=== PATIENT | male | born 1950 | race Caucasian/White ===

== ENCOUNTER 2019-03-23 17:58 | Inpatient (IN) ==
[2019-03-23] MEDS ORDERED: TESSALON PO PRN (18:23)
[2019-03-23] MEDS ORDERED: SODIUM CHLORIDE 0.9% INJ SCH (18:30)
[2019-03-23] MEDS ORDERED: NEXIUM IV SCH (18:30)
[2019-03-23] MEDS: ULTRAM PO PRN ×2 (19:00→22:33)
[2019-03-23] MEDS: LOVENOX SUBQ SCH (19:38)
[2019-03-23] MEDS: NS 1,000 ML IV SCH (19:39)
[2019-03-23] MEDS: ZOSYN 3.375 GM in NS 50 ML IV SCH ×2 (19:39→23:57)
[2019-03-23] MEDS: PROTONIX IV SCH (19:39)
[2019-03-23] MEDS: SODIUM CHLORIDE 0.9% INJ SCH (19:39)
[2019-03-23] MEDS: ZITHROMAX 500 MG/NS 500 MG/250 ML IVPB IV SCH (20:31)
[2019-03-23] MEDS ORDERED: FLOMAX PO SCH (21:45)
[2019-03-23] MEDS: LOPRESSOR PO SCH (22:26)
[2019-03-23] MEDS: MOBIC PO SCH (22:27)
[2019-03-24] MEDS: ZOSYN 3.375 GM in NS 50 ML IV SCH ×4 (00:30→18:41)
[2019-03-24] MEDS: ULTRAM PO PRN ×3 (06:00→22:24)
--- NOTE | 2019-03-24 07:03 | HISTORY AND PHYSICAL ---
CHIEF COMPLAINT: Low-grade fever, cough, congestion since the neck surgery. HISTORY OF PRESENT ILLNESS: He is a 68-year-old white gentleman, who recently had neck surgery in [facility] by Dr. Kyle Pelaez. He had ACDF fusion between C3-C4-C5. He had a previous fusion from C5-C7 by Dr. Ritter. Since then, he has a cough treated with 2 rounds of antibiotics with Levaquin and Bactrim (failed to improve) and came to our office. He has crackles in the left base. Chest x-ray with left lower lobe infiltrate. He failed to improve with outpatient medical management. Admitted to the hospital for aggressive IV antibiotics and bronchial toilet. PAST MEDICAL HISTORY: Abnormal EKG with right bundle branch block. Aortic aneurysm 40 mm, infrarenal aneurysm 3.2 cm, benign prostatic hypertrophy, noncritical CAD with 40% circumflex calcification, 25% RCA, diabetes type 2, diverticulosis, hyperlipidemia, hypertension, hypogonadism, sleep apnea, obesity, osteoporosis, history of small bowel obstruction due to adhesions, vitamin B 12 deficiency. PAST SURGICAL HISTORY: Partial colectomy, left knee arthroscopy, status post right complete mastectomy of great toenail, status post Achilles tendon repair for Mary disease, bilateral knee arthroplasty, C5-C6 fusion, C3-C4, C4-C5 fusion recently, left eye cataract surgery, exploratory laparotomy for small bowel obstruction by Dr. Hester in May 2017. Prostate biopsy was negative. Stable perirectal mass. MEDICATIONS: 1. Mobic 15 mg daily. 2. Metoprolol 25 p.o. b.i.d. 3. Aspirin 81 mg daily. 4. Tramadol 100 t.i.d. 5. BuSpar 15 p.o. t.i.d. 6. Gabapentin 300 t.i.d. 7. Flomax 0.4 mg. 8. Recently was given Medrol Dosepak, Levaquin and Bactrim. 9. Flomax 0.4 daily. 10. Crestor 10 mg daily. VACCINATION: 1. Flu vaccine in 2018. 2. Pneumococcal 13 was given 02/17/2018. SOCIAL HISTORY: Recently lost a , 3 children. Brown. Lives in [place]. No smoking. No alcohol. FAMILY HISTORY: Father of AAA rupture at 84. Mom of old age at 92. HEALTH MAINTENANCE: Last physical January 2018; colonoscopy 2009; ultrasound of the aorta 4.3 cm January 2018. REVIEW OF SYSTEMS: HEENT: Persistent cough, postnasal drainage, earache. No headache. No dizziness. Neck: No neck pain. Recently had neck surgery. Cardiopulmonary: No chest pain. Persistent cough, wheezing. GI: No nausea, vomiting, abdominal pain. : No history of hesitancy, frequency, dysuria. No swelling of legs. No joint pain. Neurologic exam: No focal symptoms or weakness. EXAMINATION: Vitals: Temperature is 97 degrees, pulse 94, blood pressure 142/98, 6 feet 1 inch, 280 pounds. HEENT: Atraumatic, normocephalic. Pupils equal, reactive to light. TMs are normal. Nose and throat congested. Chest: Crackles in the left base. Heart: Sounds are regular. Abdomen: Belly is soft, obese, nontender. Rectal: Deferred. Extremities: No peripheral edema, cyanosis. Neurologic: No obvious neurological deficits. INVESTIGATION: In my office, CBC is normal. SMA 7 is normal. Chest x-ray: Left lower lobe infiltrate. ASSESSMENT AND PLAN: 1. A 68-year-old white gentleman admitted to the hospital post neck surgery by Dr. Pelaez, persistent upper respiratory infection symptoms with left lower lobe infiltrate, not able to improve with outpatient treatment. Plan is intravenous Zosyn intravenous Zithromax, intravenous steroids, intravenous fluids 2. Health maintenance. Up-to-date on flu and pneumonia vaccine. 3. Deep vein thrombosis and gastrointestinal prophylaxis with Lovenox and Protonix. 4. Reconcile home medications. 5. Noncritical coronary artery disease. Continue on aspirin and Lopressor. 6. Hyperlipidemia on Crestor. 7. Benign prostatic hypertrophy on Flomax. 8. History of abdominal aortic aneurysm. 9. History of cardiac surveillance once a year. 10. Noncritical coronary artery disease with right bundle branch block. I put him on aspirin, beta blockers. 11. Hyperlipidemia on Crestor and Zetia, and will follow up. cc: Fransisco Lance MD
[2019-03-24] MEDS: ASPIRIN EC PO SCH (08:31)
[2019-03-24] MEDS: BUSPAR PO SCH ×3 (08:31→16:27)
[2019-03-24] MEDS: NEURONTIN PO SCH ×3 (08:31→16:26)
[2019-03-24] MEDS: SOLU-MEDROL IV SCH (08:31)
[2019-03-24] MEDS: LOPRESSOR PO SCH ×2 (08:31→22:11)
[2019-03-24] MEDS: CYMBALTA PO SCH (08:48)
[2019-03-24] MEDS: NS 1,000 ML IV SCH ×2 (11:28→22:10)
[2019-03-24] MEDS ORDERED: AMBIEN PO PRN (11:52)
[2019-03-24] MEDS ORDERED: ATIVAN IV ONE (18:19)
[2019-03-24] MEDS: LOVENOX SUBQ SCH (18:41)
[2019-03-24] MEDS: SODIUM CHLORIDE 0.9% INJ SCH (18:43)
[2019-03-24] MEDS: PROTONIX IV SCH (18:43)
--- NOTE | 2019-03-24 21:18 | PROGRESS NOTE ---
DATE: 03/24/2019 SUBJECTIVE: The patient is still coughing, insomnia, no fever and wants some sleeping medicine in the night time. OBJECTIVE: Temperature is 98.3 degrees, pulse 75, blood pressure is 151/84, 97%.HEENT: Within normal limits. Neck: Supple and crackles in the left base. Heart: Sounds are very distant. Belly is soft, obese, nontender. No obvious deficits. INVESTIGATIONS: None reported. ASSESSMENT AND PLAN: 1. Left lower lobe pneumonia. Will repeat the x-ray on Tuesday. Continue on IV steroids and IV Zithromax and Zosyn. 2. Status post cervical spine surgery recently. 3. Deep vein thrombosis, gastrointestinal prophylaxis. 4. Ambien for sleep and reconcile home medications and continue follow up. LEVEL OF DOCUMENTATION: 25 minutes. cc: Fransisco Lance MD
[2019-03-24] MEDS: ZITHROMAX 500 MG/NS 500 MG/250 ML IVPB IV SCH (22:10)
[2019-03-24] MEDS: MOBIC PO SCH (22:11)
[2019-03-25] MEDS: ZOSYN 3.375 GM in NS 50 ML IV SCH (06:41)
[2019-03-25 08:40] VITALS: BP 163/95
[2019-03-25] MEDS: CYMBALTA PO SCH (11:10)
[2019-03-25] MEDS: BUSPAR PO SCH (11:10)
[2019-03-25] MEDS: ASPIRIN EC PO SCH (11:10)
[2019-03-25] MEDS: SOLU-MEDROL IV SCH (11:10)
[2019-03-25] MEDS: LOPRESSOR PO SCH (11:10)
--- NOTE | 2019-03-26 08:36 | DISCHARGE SUMMARY ---
ADMISSION DATE: 03/23/2019 DISCHARGE DATE: 03/25/2019 DISCHARGING DIAGNOSIS: Left lower lobe pneumonia. SECONDARY DIAGNOSES: 1. Abnormal electrocardiogram with right bundle-branch block, noncritical coronary artery disease. 2. Aortic aneurysm, 40 mm. 3. Infrarenal abdominal aortic aneurysm, 4.6 cm. 4. Benign prostatic hypertrophy. Biopsy was negative by Dr. Araujo. 5. Type 2 diabetes, off medication. 6. Diverticulosis. 7. Hyperlipidemia. 8. Hypertension. 9. Hypogonadism. 10. Sleep apnea. 11. Metabolic syndrome. 12. Osteoporosis. 13. Vitamin B12 deficiency. BRIEF HISTORY: Please see the H and P that was done on 03/23/2019. In brief, he is a 68-year- old, white gentleman, who recently had a neck surgery on 02/16/[address] Pelaez in [place]. Postoperative course was complicated by hallucinations, cough, congestion, URI symptoms. He was up-to-date on flu vaccine. He was treated outpatient for the last 10 days without any improvement. He was seen in my office with the above symptoms, and he has infiltrate in the left lower lobe with crackles. CBC and SMA-7 were normal. Since he failed outpatient treatment, he decided to be admitted over the weekend for IV aggressive antibiotics. He was given oxygen, bronchodilators, IV Zosyn and Levaquin. On followup, he has decreased crackles, and he still has some sniffles. He wants to go home, and continue to monitor as an outpatient. As said, labs and CBC were normal. The patient had a flu vaccine in 2019, pneumococcal vaccine on 02/17/2018. DISCHARGE MEDICATIONS: Mobic 15 at bedtime, Lopressor 25 p.o. b.i.d., aspirin 81 mg daily, tramadol 100 t.i.d., BuSpar 15 t.i.d., gabapentin 300 t.i.d., Flomax 0.4 at bedtime, Crestor 40 daily, Levaquin 500 daily for 10 days, Medrol Dosepak, PolyHist DM 1 teaspoon every 8 hours. Control the diabetes with diet. He is off metformin. FOLLOWUP: He needs surveillance of AAA, and follow up in my office in 10 days. cc: MD Chris Salas MD Hugh C. Nabers, MD MTDD
== END 2019-03-25 14:05 | disposition home or self-care (01) | DRG 195 ==
LOC: DIRADM 17:58 → EDIPHOLD 18:19 → 3N 21:51
PROVIDERS: ADMIT Internal Medicine; ATTEND Internal Medicine